=== PATIENT | female | born 1955 | race Caucasian/White ===

== ENCOUNTER 2018-04-29 14:23 | Emergency (ER) | payer OTHER ==
[~2018-04-29] VITALS: Ht 167.6 cm; Wt 93.9 kg
[2018-04-29] MEDS ORDERED: HYDROCODONE/APAP 5MG-325MG TAB PO ONE (15:30)
[2018-04-29] MEDS ORDERED: ONDANSETRON HCL 4 MG ORAL DISINTEGRATING TAB PO ONE (15:30)
[2018-04-29] MEDS ORDERED: CLINDAMYCIN PHOS 600 MG/ 4 ML VIAL IM ONE (15:30)
--- NOTE | 2018-04-29 15:50 | Diagnostic Imaging Report ---
Exam: Left Hand Series. History: Dogbite, pain and swelling in the left index finger. Comparison: None. Findings: 3 views of the left hand. There is normal bone mineralization. Negative for acute, displaced fracture or dislocation. The joint spaces are preserved. No abnormal soft tissue calcification or mass. No cystic erosive changes.Mild soft tissue swelling in the index finger. Impression: 1. No acute bony abnormalities. Mild soft tissue swelling in the index finger. Signed by: Dr. Jori Doherty M.D. on 04/29/2018 3:47 PM
[2018-04-29] MEDS ORDERED: IBUPROFEN 200 MG TAB PO ONE (16:00)
[2018-04-29 17:37] VITALS: BP 11/82
== END 2018-04-29 17:51 | disposition home or self-care (01) ==
LOC: ER 14:23
DX: S61.251A Open bite of left index finger without damage to nail, initial encounter (principal); W54.0XXA Bitten by dog, initial encounter; Y92.008 Other place in unspecified non-institutional (private) residence as the place of occurrence of the external cause
CPT/HCPCS: 73130; 99283; Q0162